=== PATIENT | male | born 1965 | race Caucasian/White ===

== ENCOUNTER 2020-04-12 02:13 | Emergency (ER) | payer OTHER ==
[~2020-04-12] VITALS: Ht 188 cm; Wt 88.5 kg
[2020-04-12 02:16] VITALS: BP 153/87
[2020-04-12] MEDS ORDERED: VENLAFAXINE H37.5 M2 PO (02:30)
[2020-04-12] MEDS ORDERED: ALLOPURINOL 10100 M1 PO (02:30)
[2020-04-12] MEDS ORDERED: ESOMEPRAZOLE MA20 MG PO (02:30)
== END 2020-04-12 04:36 | disposition home or self-care (01) ==
LOC: ER 02:13
DX: S01.411A Laceration without foreign body of right cheek and temporomandibular area, initial encounter (principal); R04.0 Epistaxis; R42 Dizziness and giddiness; Z79.899 Other long term (current) drug therapy; W20.8XXA Other cause of strike by thrown, projected or falling object, initial encounter; Y93.89 Activity, other specified; Y92.89 Other specified places as the place of occurrence of the external cause; Y99.8 Other external cause status